=== PATIENT | female | born 1945 | race Caucasian/White ===

== ENCOUNTER 2017-12-01 08:00 | Day surgery (SDC) | payer OTHER ==
[~2017-12-01] VITALS: Ht 162.6 cm; Wt 58.1 kg
[~2017-12-01 08:00] MED LIST: SODIUM CHLORIDE 0.9% 1000ML 1,000 ML IV ONE
[2017-12-01 09:02] VITALS: BP 113/67
[2017-12-01] MEDS ORDERED: ATOR10 PO (09:17)
[2017-12-01] MEDS ORDERED: THYR60TA2 PO (09:17)
[2017-12-01] MEDS ORDERED: FE F1CAP8 PO (09:17)
[2017-12-01] MEDS ORDERED: LISI10TA7 PO (09:17)
[2017-12-01] MEDS ORDERED: PANT40TA25 PO (09:17)
[2017-12-01] MEDS ORDERED: PROPOFOL 10 MG/ML 20ML VIAL IV ONE (09:52)
== END 2017-12-01 10:30 | disposition home or self-care (01) ==
LOC: ENDO 08:00 → DAH 08:00 → ENDO 10:30
PROVIDERS: ATTEND Internal Medicine Gastroenterology
DX: D50.0 Iron deficiency anemia secondary to blood loss (chronic) (principal); Z53.8 Procedure and treatment not carried out for other reasons; K52.9 Noninfective gastroenteritis and colitis, unspecified; K92.1 Melena; I10 Essential (primary) hypertension; E03.9 Hypothyroidism, unspecified; E78.5 Hyperlipidemia, unspecified; F17.210 Nicotine dependence, cigarettes, uncomplicated
CPT/HCPCS: 93005; J2704; J7030

== ENCOUNTER 2017-12-12 08:22 | Day surgery (SDC) | payer OTHER ==
[~2017-12-12] VITALS: Ht 157.5 cm; Wt 64.3 kg
[~2017-12-12 08:22] MED LIST changes: +ATOR10 PO; +FE F1CAP8 PO; +LISI10TA7 PO; +PANT40TA25 PO; +THYR60TA2 PO
[2017-12-12 08:49] VITALS: BP 136/66
[2017-12-12] MEDS ORDERED: PROPOFOL 10 MG/ML 20ML VIAL IV ONE (09:52)
[2017-12-12 10:09] VITALS: BP 93/37
== END 2017-12-12 11:20 ==
LOC: ENDO 08:22 → DAH 08:22 → ENDO 11:20
PROVIDERS: ATTEND Internal Medicine Gastroenterology
DX: C20 Malignant neoplasm of rectum (principal); K62.4 Stenosis of anus and rectum; D50.9 Iron deficiency anemia, unspecified; I10 Essential (primary) hypertension; E78.5 Hyperlipidemia, unspecified; E03.9 Hypothyroidism, unspecified; F17.210 Nicotine dependence, cigarettes, uncomplicated; Z79.899 Other long term (current) drug therapy; Z98.890 Other specified postprocedural states
CPT/HCPCS: 88305; 88360; A4606; J2704; J7030

== ENCOUNTER 2017-12-13 16:42 | Inpatient (IN) | payer OTHER ==
[~2017-12-13] VITALS: Ht 167.6 cm; Wt 67.5 kg
[~2017-12-13 16:42] MED LIST changes: -SODIUM CHLORIDE 0.9% 1000ML 1,000 ML IV ONE
[2017-12-13 17:30] LABS: BASOPHILS % (AUTO) 0.3 % (0.0-5.0); EOSINOPHILS % (AUTO) 0.6 % (0.0-8.0); HEMATOCRIT 27.5 % (36-48); MEAN CORPUSCULAR HGB CONC 33.6 g/dL (32.0-36.0); MEAN CORPUSCULAR VOLUME 74.5 fL (79-99); NEUTROPHILS % (AUTO) 81.1 % (40.0-77.0); PLATELET COUNT (AUTO) 641 K/uL (130-400); RED BLOOD CELL COUNT(AUTO) 3.69 MIL/uL (4.00-5.50); WHITE BLOOD COUNT (AUTO) 12.6 K/uL (4.8-10.8)
[2017-12-13 17:42] LABS: ALBUMIN 2.3 g/dL (3.5-5.0); BILIRUBIN,TOTAL 0.3 mg/dL (0.2-1.0); CREATININE 0.8 mg/dL (0.5-1.5); TOTAL PROTEIN, SERUM 4.8 g/dL (6.0-8.3)
[2017-12-13 17:43] LABS: POTASSIUM 2.6 mmol/L (3.5-5.1)
[2017-12-13] MEDS ORDERED: LACTATED RINGERS 1000ML 1,000 ML IV SCH (18:15)
[2017-12-13 20:35] VITALS: BP 152/76
[2017-12-13] MEDS ORDERED: POTASSIUM CHLORIDE 10% ELIXIR 20 MEQ/15 ML UDCUP PO PRN (21:00)
[2017-12-13] MEDS ORDERED: MAGNESIUM SULFATE 1 GM in SODIUM CHLORIDE 0.9% 50 ML IV SCH (21:00)
[2017-12-13] MEDS: NS-20 MEQ KCL 1000ML 1,000 ML IV SCH (21:00)
[2017-12-13] MEDS ORDERED: MORPHINE SULFATE 2 MG/ML 1ML SYG IVP PRN (21:15)
[2017-12-13] MEDS ORDERED: ONDANSETRON HCL 4 MG/2 ML VIAL IVP PRN (21:15)
[2017-12-13] MEDS ORDERED: HYDRALAZINE HCL 20 MG/ML VIAL IV PRN (22:15)
[2017-12-13] MEDS: POTASSIUM CHLORIDE 20 MEQ ERTAB PO PRN (22:49)
[2017-12-13 23:23] LABS: APPEARANCE,URINE Clear (CLEAR); BILIRUBIN,URINE Negative (NEGATIVE); COLOR,URINE Yellow (YELLOW); GLUCOSE, URINE (UA) Negative (NEGATIVE); KETONES,URINE Negative (NEGATIVE); LEUKOCYTE ESTERASE ,URINE Negative (NEGATIVE); NITRATE,URINE Negative (NEGATIVE); OCCULT BLOOD,URINE Negative (NEGATIVE); PH,URINE 6.5 (5.0-8.0); PROTEIN,URINE Negative (NEGATIVE); UROBILINOGEN,URINE 0.2 mg/dL (0.2-1.0)
[2017-12-13 23:35] VITALS: BP 143/71
[2017-12-14] VITALS (27 sets, daily range): BP systolic 118–200; BP diastolic 70–115
[2017-12-14 04:09] LABS: HEMATOCRIT 27.7 % (36-48); MEAN CORPUSCULAR HEMOGLOBIN 26.3 pg (27.0-33.0); MEAN CORPUSCULAR VOLUME 75.1 fL (79-99); PLATELET COUNT (AUTO) 655 K/uL (130-400); RED BLOOD CELL COUNT(AUTO) 3.69 MIL/uL (4.00-5.50); RED CELL DISTRIBUTION WIDTH 15.5 % (11.0-15.5); WHITE BLOOD COUNT (AUTO) 12.4 K/uL (4.8-10.8)
[2017-12-14 04:11] LABS: INR 1.04 (0.85-1.15); PROTHROMBIN TIME 10.9 SEC (9.6-11.6)
[2017-12-14 04:22] LABS: CREATININE 0.8 mg/dL (0.5-1.5); POTASSIUM 3.2 mmol/L (3.5-5.1)
[2017-12-14] MEDS: NS-20 MEQ KCL 1000ML 1,000 ML IV SCH ×3 (05:52→17:16)
[2017-12-14] MEDS: POTASSIUM CHLORIDE 20MEQ/100ML 100 ML IV PRN (06:11)
[2017-12-14] MEDS: LIDOCAINE HCL-MPF 1% 2ML VIAL IVP PRN (06:12)
[2017-12-14] MEDS ORDERED: FOSI10TA3 PO (08:16)
[2017-12-14] MEDS ORDERED: MAG HYDROX/AL HYDROX/SIMETH ES 30 ML SUSP UDCUP PO PRN (10:00)
[2017-12-14] MEDS ORDERED: ONDANSETRON HCL 4 MG/2 ML VIAL IV PRN (10:00)
[2017-12-14] MEDS ORDERED: ACETAMINOPHEN 325 MG TAB PO PRN ×2 (10:00)
[2017-12-14] MEDS ORDERED: LACTULOSE 20 GM/30 ML UDCUP PO PRN (10:00)
[2017-12-14] MEDS ORDERED: GUAIFENESIN-DM 200/20 MG 10 ML PO PRN (10:00)
[2017-12-14] MEDS ORDERED: HYDRALAZINE HCL 20 MG/ML VIAL IV PRN (10:00)
[2017-12-14] MEDS ORDERED: NITROGLYCERIN 0.4 MG SL TAB SL PRN (10:00)
[2017-12-14] MEDS ORDERED: CEFOXITIN SODIUM 2 GM VIAL ONE (11:44)
[2017-12-14] MEDS ORDERED: CEFOXITIN SODIUM 1 GM VIAL IV SCH (11:45)
[2017-12-14] MEDS ORDERED: WATER FOR INJECTION,STERILE 20 ML VIAL IJ SCH (11:45)
[2017-12-14] MEDS ORDERED: FENTANYL CITRATE PF 50 MCG/1 ML 2ML VIAL ONE ×2 (11:53→12:29)
[2017-12-14] MEDS ORDERED: MIDAZOLAM HCL 1 MG/ML 2ML VIAL ONE (11:53)
[2017-12-14] MEDS ORDERED: SUCCINYLCHOLINE 200MG/10ML SYR ONE (11:57)
[2017-12-14] MEDS ORDERED: PROPOFOL 10 MG/ML 20ML VIAL IV ONE (11:58)
[2017-12-14] MEDS ORDERED: IPRATROPIUM/ALBUTEROL SULFATE 3 ML SOLUTION IH ONE (13:46)
[2017-12-14] MEDS ORDERED: MEPERIDINE-PF 25 MG/ML SYG ONE (13:54)
[2017-12-14] MEDS: CEFOXITIN SODIUM 1 GM VIAL IVP SCH (17:10)
[2017-12-14] MEDS ORDERED: CEFOXITIN 1GM+NS 100ML 100 ML IV SCH (18:00)
[2017-12-14] MEDS: POTASSIUM CHLORIDE 20 MEQ ERTAB PO PRN (21:13)
[2017-12-14] MEDS: FAMOTIDINE/PF 20 MG/2 ML VIAL IV SCH (21:13)
[2017-12-15] MEDS ORDERED: CEFOXITIN SODIUM 1 GM VIAL ONE (03:15)
[2017-12-15] MEDS: CEFOXITIN SODIUM 1 GM VIAL IVP SCH (03:18)
[2017-12-15 03:43] LABS: BASOPHILS % (AUTO) 0.4 % (0.0-5.0); EOSINOPHILS % (AUTO) 0.4 % (0.0-8.0); HEMATOCRIT 31.5 % (36-48); LYMPHOCYTES % (AUTO) 5.8 % (21.0-51.0); MEAN CORPUSCULAR HGB CONC 33.4 g/dL (32.0-36.0); MEAN CORPUSCULAR VOLUME 74.8 fL (79-99); MONOCYTES % (AUTO) 4.6 % (3.0-13.0); PLATELET COUNT (AUTO) 674 K/uL (130-400); RED BLOOD CELL COUNT(AUTO) 4.21 MIL/uL (4.00-5.50); RED CELL DISTRIBUTION WIDTH 15.5 % (11.0-15.5); WHITE BLOOD COUNT (AUTO) 18.3 K/uL (4.8-10.8)
[2017-12-15 03:45] VITALS: BP 142/76
[2017-12-15 03:56] LABS: CREATININE 0.7 mg/dL (0.5-1.5); POTASSIUM 3.8 mmol/L (3.5-5.1)
[2017-12-15 06:06] LABS: NEUTROPHILS % (AUTO) 88.8 % (40.0-77.0)
[2017-12-15] MEDS: NS-20 MEQ KCL 1000ML 1,000 ML IV SCH ×2 (06:45→17:49)
[2017-12-15 08:00] VITALS: BP 150/78
[2017-12-15] MEDS ORDERED: ACETAMINOPHEN-CODEINE 300/30MG TAB PO PRN ×2 (08:00)
[2017-12-15] MEDS ORDERED: KETOROLAC TROMETHAMINE 15MG/ML IV PRN (08:00)
[2017-12-15] MEDS: THYROID 60 MG PO SCH (09:00)
[2017-12-15] MEDS: LISINOPRIL 10 MG TABLET PO SCH ×2 (09:00→09:51)
[2017-12-15] MEDS: FE FUMARATE/FA/MV, MIN COMB#15 1 TAB PO SCH (09:50)
[2017-12-15] MEDS: PANTOPRAZOLE SODIUM 40 MG TABLET.DR PO SCH (09:50)
[2017-12-15] MEDS: FAMOTIDINE/PF 20 MG/2 ML VIAL IV SCH ×2 (09:51→20:20)
[2017-12-15 11:00] VITALS: BP 136/83
[2017-12-15 16:00] VITALS: BP 138/71
[2017-12-15 19:50] VITALS: BP 139/78
[2017-12-15] MEDS: ATORVASTATIN CALCIUM 10 MG TABLET PO SCH (20:20)
[2017-12-15 23:28] VITALS: BP 134/79
[2017-12-16 03:45] LABS: HEMATOCRIT 29.4 % (36-48); MEAN CORPUSCULAR HEMOGLOBIN 25.4 pg (27.0-33.0); MEAN CORPUSCULAR HGB CONC 33.9 g/dL (32.0-36.0); MEAN CORPUSCULAR VOLUME 74.9 fL (79-99); PLATELET COUNT (AUTO) 570 K/uL (130-400); RED BLOOD CELL COUNT(AUTO) 3.92 MIL/uL (4.00-5.50); RED CELL DISTRIBUTION WIDTH 15.9 % (11.0-15.5); WHITE BLOOD COUNT (AUTO) 14.3 K/uL (4.8-10.8)
[2017-12-16 03:55] VITALS: BP 143/79
[2017-12-16 03:55] LABS: CREATININE 0.7 mg/dL (0.5-1.5); POTASSIUM 3.8 mmol/L (3.5-5.1)
[2017-12-16 07:00] VITALS: BP 142/80
[2017-12-16] MEDS: THYROID 60 MG PO SCH (09:00)
[2017-12-16] MEDS: LISINOPRIL 10 MG TABLET PO SCH ×3 (09:00→12:07)
[2017-12-16] MEDS: PANTOPRAZOLE SODIUM 40 MG TABLET.DR PO SCH (09:20)
[2017-12-16] MEDS: FE FUMARATE/FA/MV, MIN COMB#15 1 TAB PO SCH (09:21)
[2017-12-16] MEDS: FAMOTIDINE/PF 20 MG/2 ML VIAL IV SCH ×2 (09:25→20:13)
[2017-12-16] MEDS: POTASSIUM CHLORIDE 20 MEQ ERTAB PO PRN ×2 (09:25→12:07)
[2017-12-16 11:06] VITALS: BP 149/88
[2017-12-16 15:00] VITALS: BP 136/70
[2017-12-16 20:00] VITALS: BP 145/66
[2017-12-16] MEDS: ATORVASTATIN CALCIUM 10 MG TABLET PO SCH (20:13)
[2017-12-17] VITALS (7 sets, daily range): BP systolic 134–159; BP diastolic 67–87
[2017-12-17 06:20] LABS: HEMATOCRIT 30.4 % (36-48); MEAN CORPUSCULAR HEMOGLOBIN 25.6 pg (27.0-33.0); MEAN CORPUSCULAR HGB CONC 34.5 g/dL (32.0-36.0); MEAN CORPUSCULAR VOLUME 74.3 fL (79-99); PLATELET COUNT (AUTO) 545 K/uL (130-400); RED BLOOD CELL COUNT(AUTO) 4.09 MIL/uL (4.00-5.50); RED CELL DISTRIBUTION WIDTH 15.7 % (11.0-15.5); WHITE BLOOD COUNT (AUTO) 15.6 K/uL (4.8-10.8)
[2017-12-17 06:25] LABS: CREATININE 0.7 mg/dL (0.5-1.5); POTASSIUM 3.7 mmol/L (3.5-5.1)
[2017-12-17] MEDS: LISINOPRIL 10 MG TABLET PO SCH ×2 (09:00→09:18)
[2017-12-17] MEDS: THYROID 60 MG PO SCH (09:00)
[2017-12-17] MEDS ORDERED: DIATR MEGLU/DIATRIZOATE SODIUM 30 ML BOTTLE PO ONE ×2 (09:03→16:20)
[2017-12-17] MEDS: FE FUMARATE/FA/MV, MIN COMB#15 1 TAB PO SCH (09:15)
[2017-12-17] MEDS: SODIUM CHLORIDE 0.9% 1000ML 1,000 ML IV SCH (09:23)
[2017-12-17] MEDS: FAMOTIDINE/PF 20 MG/2 ML VIAL IV SCH ×2 (09:28→20:36)
[2017-12-17] MEDS: LIDOCAINE HCL-MPF 1% 2ML VIAL IVP PRN (15:40)
[2017-12-17] MEDS: POTASSIUM CHLORIDE 20MEQ/100ML 100 ML IV PRN (15:41)
[2017-12-17] MEDS ORDERED: IOPAMIDOL-370 75 ML VIAL IV ONE (16:19)
[2017-12-17] MEDS: ATORVASTATIN CALCIUM 10 MG TABLET PO SCH (20:36)
[2017-12-18] VITALS (20 sets, daily range): BP systolic 125–168; BP diastolic 63–89
[2017-12-18] MEDS: SODIUM CHLORIDE 0.9% 1000ML 1,000 ML IV SCH (03:50)
[2017-12-18 06:14] LABS: BASOPHILS % (AUTO) 0.4 % (0.0-5.0); EOSINOPHILS % (AUTO) 0.8 % (0.0-8.0); HEMATOCRIT 32.3 % (36-48); LYMPHOCYTES % (AUTO) 7.7 % (21.0-51.0); MEAN CORPUSCULAR HEMOGLOBIN 25.5 pg (27.0-33.0); MEAN CORPUSCULAR VOLUME 74.9 fL (79-99); MONOCYTES % (AUTO) 6.2 % (3.0-13.0); NEUTROPHILS % (AUTO) 84.9 % (40.0-77.0); PLATELET COUNT (AUTO) 557 K/uL (130-400); RED CELL DISTRIBUTION WIDTH 15.7 % (11.0-15.5); WHITE BLOOD COUNT (AUTO) 14.9 K/uL (4.8-10.8)
[2017-12-18 06:27] LABS: CREATININE 0.7 mg/dL (0.5-1.5); POTASSIUM 3.7 mmol/L (3.5-5.1)
[2017-12-18] MEDS: FE FUMARATE/FA/MV, MIN COMB#15 1 TAB PO SCH (09:00)
[2017-12-18] MEDS: LISINOPRIL 10 MG TABLET PO SCH (09:00)
[2017-12-18] MEDS: FAMOTIDINE/PF 20 MG/2 ML VIAL IV SCH ×2 (09:00→20:30)
[2017-12-18] MEDS: THYROID 60 MG PO SCH (09:00)
[2017-12-18] MEDS ORDERED: LACTATED RINGERS 1000ML 1,000 ML IV ONE (10:10)
[2017-12-18] MEDS ORDERED: HEPARIN SODIUM 1000UNIT/ML 10ML VIAL ONE (10:41)
[2017-12-18] MEDS ORDERED: DEXAMETHASONE SOD PHOSPHATE 10MG/ML 1ML VIAL ONE (10:55)
[2017-12-18] MEDS ORDERED: GLYCOPYRROLATE 0.2 MG/ML 5 ML VIAL ONE (10:55)
[2017-12-18] MEDS ORDERED: ONDANSETRON HCL 4 MG/2 ML VIAL ONE (10:55)
[2017-12-18] MEDS ORDERED: PROPOFOL 10 MG/ML 20ML VIAL IV ONE (10:56)
[2017-12-18] MEDS ORDERED: MIDAZOLAM HCL 1 MG/ML 2ML VIAL ONE (10:56)
[2017-12-18] MEDS ORDERED: LIDOCAINE PF 2% 5ML ABBOJECT ONE (10:56)
[2017-12-18] MEDS ORDERED: FENTANYL CITRATE PF 50 MCG/1 ML 2ML VIAL ONE (10:56)
[2017-12-18] MEDS ORDERED: CEFAZOLIN SODIUM 1 GM VIAL ONE (11:10)
[2017-12-18] MEDS ORDERED: SODIUM CHLORIDE 0.9% 1000ML 1,000 ML IV SCH (11:43)
[2017-12-18] MEDS: ATORVASTATIN CALCIUM 10 MG TABLET PO SCH (20:30)
[2017-12-19] VITALS (8 sets, daily range): BP systolic 136–165; BP diastolic 65–86
[2017-12-19 04:32] LABS: HEMATOCRIT 28.4 % (36-48); MEAN CORPUSCULAR HEMOGLOBIN 25.2 pg (27.0-33.0); MEAN CORPUSCULAR VOLUME 74.1 fL (79-99); PLATELET COUNT (AUTO) 482 K/uL (130-400); RED BLOOD CELL COUNT(AUTO) 3.83 MIL/uL (4.00-5.50); RED CELL DISTRIBUTION WIDTH 15.9 % (11.0-15.5); WHITE BLOOD COUNT (AUTO) 15.9 K/uL (4.8-10.8)
[2017-12-19 04:53] LABS: CREATININE 0.7 mg/dL (0.5-1.5); POTASSIUM 3.9 mmol/L (3.5-5.1)
[2017-12-19] MEDS: THYROID 60 MG PO SCH (09:00)
[2017-12-19] MEDS: FAMOTIDINE/PF 20 MG/2 ML VIAL IV SCH ×2 (10:38→20:09)
[2017-12-19] MEDS: FE FUMARATE/FA/MV, MIN COMB#15 1 TAB PO SCH (10:38)
[2017-12-19] MEDS: LISINOPRIL 10 MG TABLET PO SCH (10:39)
[2017-12-19] MEDS: ATORVASTATIN CALCIUM 10 MG TABLET PO SCH (20:07)
[2017-12-20 04:00] VITALS: BP 165/91
[2017-12-20] MEDS ORDERED: TRAM50TA2 PO (07:41)
[2017-12-20 08:00] VITALS: BP 154/67
[2017-12-20] MEDS: THYROID 60 MG PO SCH (09:00)
[2017-12-20] MEDS: LISINOPRIL 10 MG TABLET PO SCH (10:49)
[2017-12-20] MEDS: FAMOTIDINE/PF 20 MG/2 ML VIAL IV SCH (10:49)
[2017-12-20] MEDS: FE FUMARATE/FA/MV, MIN COMB#15 1 TAB PO SCH (10:50)
[2017-12-20 12:00] VITALS: BP 151/75
== END 2017-12-20 17:00 | disposition home or self-care (01) | DRG 330 ==
LOC: EDH 16:42 → EDHIP 16:55 → 3BH 19:46
PROVIDERS: ADMIT Surgery; ATTEND Surgery
PROC: 0D1M0Z4 Bypass Descending Colon to Cutaneous, Open Approach (ICD-10-PCS; principal; 2017-12-14 11:52)
PROC: 0JH63WZ Insertion of Totally Implantable Vascular Access Device into Chest Subcutaneous Tissue and Fascia, Percutaneous Approach (ICD-10-PCS; 2017-12-18)
DX: C19 Malignant neoplasm of rectosigmoid junction (principal); E44.0 Moderate protein-calorie malnutrition; N13.30 Unspecified hydronephrosis; D64.9 Anemia, unspecified; E03.9 Hypothyroidism, unspecified; E78.5 Hyperlipidemia, unspecified; E87.6 Hypokalemia; I10 Essential (primary) hypertension; F17.210 Nicotine dependence, cigarettes, uncomplicated; K52.9 Noninfective gastroenteritis and colitis, unspecified; Z68.24 Body mass index [BMI] 24.0-24.9, adult; Z85.048 Personal history of other malignant neoplasm of rectum, rectosigmoid junction, and anus
CPT/HCPCS: 36415; 71045; 74018; 74177; 80048; 80053; 81003; 82378; 83735; 85025; 85027; 85610; 86850; 86900; 86901; 86922; 93005; 94640; A4218; A4344; A4606; A5061; A6250; C1788; J0330; J0690; J0694; J1100; J1644; J2001; J2175; J2250; J2405; J2704; J3010; J3475; J3480; J3490; J7030; J7120; Q9963; Q9967